=== PATIENT | female | born 1960 | race Caucasian/White ===

== ENCOUNTER 2024-04-21 16:00 | Emergency (ER) | payer MEDICARE, SELFPAY ==
[2024-04-21 16:04] VITALS: BP 125/84
--- NOTE | 2024-04-21 16:45 | ED.GENMED ---
History of Present Illness
General
Chief Complaint: Crisis Evaluation
Source: patient
Exam Limitations: none
Time Seen by Provider: 04/21/24 16:34
History of Present Illness
History of Present Illness:
63-year-old female presents with request to talk to crisis. Patient has depression. She has a history of self harming behavior and cutting as coping mechanisms. She received a piece of mail stating that her health insurance will be ending in
July 2024 she got upset. She tried to call the Medicaid office and was unable to speak with someone as she got worked up. She spoke with the clinic that she goes to and I advised that she come here. She currently is calm down and is denying
thoughts of harming herself or others. She lives with her family.
Past History
Past History
ED Past Medical History: Arrthythmia (SVT), GERD, Psychiatric (Depression, anxiety) and Other (Irritable bowel disease, kidney stones, ovarian cyst, osteoarthritis, psoriasis, anemia )
ED Past Surgical History: Gynecological (Fibroid removal ) and Tonsilectomy
Social History
Tobacco: Non-smoker
Alcohol: None
Personal: Single
Living: with family
Family History
Family History: Hypertension
Phy Exam
Physical Exam
Physical Exam:
General: WEll appearing female NAD
HEENT: NC/AT
Heart: RRR, no murmurs
Lungs: CTA
Psychiatric exam: Calm cooperative denying thoughts of harming self or others. Denying hallucinations.
Extremities: No cyanosis
Course
Orders/Labs/Results
Orders:
Orders
04/21/24 16:51
Crisis Consult Urgent
Reason for Consult: thoughts of harming self
Vital Signs
Initial and Last Documented VS:
Initial Vital Signs
Temp Pulse Resp BP Pulse Ox
98.2 F 66 16 125/84 100
04/21/24 16:04 04/21/24 16:04 04/21/24 16:04 04/21/24 16:04 04/21/24 16:04
Last Documented Vital Signs
Temp Pulse Resp BP Pulse Ox
98.2 F 66 16 125/84 100
04/21/24 16:04 04/21/24 16:04 04/21/24 16:04 04/21/24 16:04 04/21/24 16:04
MDM/Problems Addressed
Differential Diagnosis Includes:
Patient came here for evaluation as she was having thoughts about cutting herself but did not. She talked herself down. She is not thinking about harming herself in any way. Will consult crisis for their input. I anticipate she will be able to
be discharged
*Critical Care Note
Total Time (30-74mins, 75-104mins- exclusive of procedures): Not Applicable
Update Note
Update Note:
Patient has been stable here. She was evaluated by crisis. Patient has been deemed not to be an imminent threat to herself or others. Stable for discharge. She will follow-up with her treating physician
ED Attending Note
-
Portions of this chart may have been created with voice recognition software.� Occasional wrong word or��sound alike� substitutions may have occurred due to the inherent limitations of voice recognition software.
Discharge Plan
Departure
Patient Disposition: Home (Routine Discharge)
Date of Disposition: 04/21/24
Time of Disposition: 17:30
Patient with high blood pressure during this ER visit?: No
Discharge Problem:
crisis evaluation
Prescriptions:
No Action
sertraline 100 MG tablet
200 mg PO HS
olanzapine [Zyprexa] 20 MG tablet
20 mg PO HS
calcium carbonate 600 MG tablet
600 mg PO DAILY
azelastine 137 MCG/0.137 ML aerosol,spray
274 mcg NS DAILY
Multivitamin With Minerals [Hair, Skin And Nails] 1 EACH Tablet
3 ea PO DAILY
aspirin 81 MG tablet,chewable
81 mg PO DAILY Qty: 1 0RF
Rx Instructions:
Take for 30 days then stop
diltiazem HCl 120 MG capsule,extended release 24hr
120 mg PO DAILY Qty: 1 0RF
ondansetron 4 mg tablet,disintegrating
4 mg PO Q8H PRN (Reason: nausea and vomiting) Qty: 10 0RF
Activity Restrictions/Additional Instructions:
Please return here for any worsening symptoms otherwise follow-up with your doctor as planned
Interventions
Interventions:
*Risk Screen - Suicide Last Done: 04/21/24 16:11
*General Assessment Last Done: 04/21/24 16:25
*Neglect/Abuse Screening Last Done: 04/21/24 16:03
*ED COVID-19 Vaccine History Last Done: 04/21/24 16:25
ED-Psychological Assessment Last Done: 04/21/24 16:25
Discharge Date and Time
Print Language: SENEGALESE
[2024-04-21 18:12] VITALS: BP 113/87
== END 2024-04-21 18:15 | disposition home or self-care (01) ==
LOC: EMR 16:00
PROVIDERS: EMERGENCY PHYSICIAN Emergency Medicine; FAMILY PHYSICIAN Physician Assistant Medical
DX: F32.A Depression, unspecified (principal); K21.9 Gastro-esophageal reflux disease without esophagitis; F41.9 Anxiety disorder, unspecified; K58.9 Irritable bowel syndrome, unspecified; M19.90 Unspecified osteoarthritis, unspecified site; L40.9 Psoriasis, unspecified; Z91.52 Personal history of nonsuicidal self-harm; Z87.442 Personal history of urinary calculi
CPT/HCPCS: 99283

== ENCOUNTER 2025-04-11 07:46 | Emergency (ER) | payer MEDICARE, SELFPAY ==
[2025-04-11 07:58] VITALS: BP 131/83
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
[2025-04-11] MEDS: EMLA CREAM 1 GRAM TOPICAL (09:04)
== END 2025-04-11 08:45 | disposition home or self-care (01) ==
LOC: EMR 07:46
PROVIDERS: EMERGENCY PHYSICIAN Emergency Medicine; FAMILY PHYSICIAN Physician Assistant Medical
DX: L29.9 Pruritus, unspecified (principal); I47.10 Supraventricular tachycardia, unspecified; K21.9 Gastro-esophageal reflux disease without esophagitis; F41.8 Other specified anxiety disorders; K58.9 Irritable bowel syndrome, unspecified; L40.9 Psoriasis, unspecified; D64.9 Anemia, unspecified; F41.9 Anxiety disorder, unspecified; M19.90 Unspecified osteoarthritis, unspecified site; Z82.49 Family history of ischemic heart disease and other diseases of the circulatory system; Z87.442 Personal history of urinary calculi
CPT/HCPCS: 99282; 87102